=== PATIENT | male | born 1945 | race Caucasian/White ===

== ENCOUNTER 2016-04-10 09:49 | Emergency (ER) | payer MEDICARE, OTHER ==
[~2016-04-10] VITALS: Ht 177.8 cm; Wt 100.5 kg
[2016-04-10 09:55] VITALS: BP 141/88; PULSE 62; RESP 18; TEMP 98; O2SAT 95
[2016-04-10] MEDS ORDERED: PROSTATE MED (10:10)
[2016-04-10] MEDS ORDERED: METO25TA6 PO (10:10)
--- NOTE | 2016-04-10 10:35 | RADHPO ---
EXAM DATE/TIME: 04/10/2016 10:15 [place] COMPARISON: No previous studies available for comparison. INDICATIONS : Distal/posterior tibia/fibula pain/swelling/bruising after pushing car. MEDICAL HISTORY : Venous insufficiency. Cardiomegaly. SURGICAL HISTORY : Hernia repair. Shoulder. Renal stone removal. ENCOUNTER: Initial ACUITY: 4 - 6 days PAIN SCORE: 7/10 LOCATION: Right posterior distal tibia/fibula FINDINGS: Two view examination of the right tibia demonstrates no evidence of fracture or dislocation. Bony mi neralization is normal. Soft tissue swelling of distal leg/ankle CONCLUSION: Soft S1 without fracture. Iggy Kohli MD on April 10, 2016 at 10:33 Board Certified Radiologist. This report was verified electronically.
--- NOTE | 2016-04-10 10:57 | PD ---
HPI Chief Complaint: Musculoskeletal Complaint Time Seen by Provider: 10:00 Travel History International Travel<30 days: No Contact w/Intl Traveler<30days: No Traveled to known affect area: No History of Present Illness HPI 70-year-old man presents emergent department when of right leg pain with swelling and bruising. He states that several days ago he was pushing a stopped car today we'll it up onto a ramp when he felt a pop in his right calf and had abrupt onset of significant pain. He was able to continue but was having worsening pain with weightbearing and plantarflexion of the leg for the past few days after that. Symptoms gradually improved but over the past 2 days he then developed swelling and bruising in the leg. He is able to bear weight, still with a little bit of pain, but otherwise has been feeling generally well and healthy. Not on any blood thinners. No other complaints. History Past Medical History Narrative Medical BPH Enlarged heart Social History Alcohol Use: No Tobacco Use: No Allergies-Medications (Allergen,Severity, Reaction): Coded Allergies: No Known Allergies (Unverified , 04/10/16) Reported Meds & Prescriptions Reported Meds & Active Scripts Active Reported [Prostate Med] Metoprolol Succinate ER 24 HR (Metoprolol Succinate) 25 Mg Tab Unknown Dose PO DAILY Review of Systems Except as stated in HPI: all other systems reviewed are Neg Physical Exam Narrative GENERAL: Well-appearing 70 year-old man, no acute distress. SKIN: Warm and dry. CARDIOVASCULAR: Warm and well perfused. RESPIRATORY: Normal rate and effort. MUSCULOSKELETAL: Right leg has some edema and ecchymosis throughout the calf and the ankle. There is some calf tenderness with squeezing. He has full strength in plantar flexion and dorsiflexion of the ankle foot and toes. He has some pain brought on with plantar flexion against resistance. Good pulses. Normal sensation. NEUROLOGICAL: Awake and alert. No gross deficits. Data Data Last Documented VS Vital Signs Date Time Temp Pulse Resp B/P Pulse Ox O2 Delivery O2 Flow Rate FiO2 04/10/16 09:55 98.0 62 18 141/88 95 Orders Tibia/Fibula (Ap/Lat) (04/10/16 ) MDM Medical Decision Making Medical Screen Exam Complete: Yes Emergency Medical Condition: Yes Interpretation(s) Tib-fib x-ray: No fracture Differential Diagnosis Fibular fracture, calf strain or sprain Narrative Course Medical decision-making new para 70-year-old male with a calf pain that started after pushing a car but pop. X-rays negative for fracture. He likely tore his calf muscles. Bruising and ecchymosis came on from dependent edema over time. Likely improving. Recommend compression with Viral wrap, elevation, outpatient follow-up. Diagnosis Primary Impression: Strain of calf muscle Qualified Code: S86.811A - Strain of calf muscle, right, initial encounter Additional Instructions: Keep leg elevated as much as possible. Use Viral wrap when you're often walking. Follow-up with your primary doctor for not completely well in 2 weeks. Return to the emergency department for any new or worsening symptoms. Med/Other Pt SpecificInfo: No Change to Meds Disposition: 01 DISCHARGE HOME Condition: Stable Pablo Farias MD Apr 10, 2016 10:57
== END 2016-04-10 11:34 | disposition home or self-care (01) ==
LOC: PHED 09:49
DX: S86.119A Strain of other muscle(s) and tendon(s) of posterior muscle group at lower leg level, unspecified leg, initial encounter (principal); X50.0XXA Overexertion from strenuous movement or load, initial encounter; Y93.89 Activity, other specified
CPT/HCPCS: 73590; 99283